=== PATIENT | male | born 1980 | race Caucasian/White ===

== ENCOUNTER 2023-04-22 13:12 | Emergency (ER) | payer OTHER, SELFPAY ==
[2023-04-22] VITALS (11 sets, daily range): BP systolic 121–137; BP diastolic 67–82; PULSE 73–89; RESP 18–20; TEMP 36.6; O2SAT 90–95; BMI 37.3
--- NOTE | 2023-04-22 13:34 | ECG_ITS ---
APPROVED REPORT Exam: Resting ECG HR:81 bpm ECG Measurements Heart Rate 81 AXES MN 165 P 44 QRSd 97 QRS 46 QT 365 T 30 QTc 402 Conclusion SINUS RHYTHM BORDERLINE ECG Electronically signed by : CHARLETTE ALEX, 04/22/2023 16:26:37
--- NOTE | 2023-04-22 14:05 | XR_ITS ---
FINAL REPORT CLINICAL HISTORY: Shortness of breath COMPARISON: 04/22/2023 FINDINGS: Two views of the chest were obtained. The heart size and pulmonary vascularity are within normal limits. The mediastinum is normal. No acute pulmonary abnormality is identified. There is no pneumothorax. The bony thorax is intact. IMPRESSION: No active cardiopulmonary disease. Reviewed, Interpreted and Dictated by Henry Solorzano III, MD Transcribed by Hailey Paul Authenticated and . [facility]
[2023-04-22 14:12] LABS: Basophils % 0.8 % (0.1-2.0); Eosinophils # 0.1 K/mm3 (0.0-0.4); Eosinophils % 2.4 % (0.1-12.0); Hematocrit 45.3 % (42.0-52.0); Hemoglobin 14.9 g/dL (14.1-18.0); Lymphocytes # 1.2 K/mm3 (0.7-4.5); Lymphocytes % 20.2 % (10-50); Mean Corpuscular HGB Conc 32.8 g/dL (31.8-35.4); Mean Corpuscular Volume 85.2 fl (80-94); Mean Platelet Volume 7.9 fl (7.4-10.4); Monocytes # 0.4 K/mm3 (0.1-1.0); Monocytes % 6.4 % (1.7-9.3); Neutrophils # 4.1 K/mm3 (1.8-7.8); Neutrophils % 70.2 % (37.0-80.0); Platelet Count 107 K/mm3 (142-424); Red Blood Count 5.32 M/mm3 (4.60-6.20); Red Cell Distribution Width 16.4 % (11.5-17.5); White Blood Count 5.8 K/mm3 (4.8-10.8)
--- NOTE | 2023-04-22 14:12 | CT_ITS ---
PROCEDURE INFORMATION: Exam: CTA Chest With Contrast Exam date and time: 04/22/2023 1:46 PM Age: 42 years old Clinical indication: Pain; Dyspnea; Chest pressure; Additional info: Fever dyspnea chest pain TECHNIQUE: Imaging protocol: Computed tomographic angiography of the chest with contrast. Exam focused on the arteries. 3D rendering (Not supervised by radiologist): MIP and/or 3D reconstructed images were created by the technologist. Radiation optimization: All CT scans at this facility use at least one of these dose optimization techniques: automated exposure control; mA and/or kV adjustment per patient size (includes targeted exams where dose is matched to clinical indication); or iterative reconstruction. Contrast material: ISOVUE 370; Contrast volume: 70 ml; Contrast route: INTRAVENOUS (IV); COMPARISON: CR CXR CHEST(2 VIEWS-NOT PORTABLE) 09/07/2016 2:39 PM FINDINGS: Pulmonary arteries: No evidence of pulmonary embolism. Aorta: No aortic aneurysm. Lungs: No evidence of acute airspace infiltrate. No pulmonary edema. Few calcified pulmonary granulomata in the right middle lobe consistent with chronic sequelae of prior granulomatous disease. Noncalcified subpleural 5 mm pulmonary nodule in the right middle lobe (series 7, image 60). Pleural spaces: No pneumothorax. No pleural effusion. Heart: Mild global cardiomegaly. Lymph nodes: Calcified mediastinal lymph nodes consistent with chronic sequelae of prior granulomatous disease. Intraperitoneal space: No emergent findings or suspicious mass lesions in the partially visualized upper abdomen. Bones/joints: No acute osseous abnormality. Soft tissues: Gynecomastia. IMPRESSION: 1. No evidence of pulmonary embolism or other acute process in the chest. 2. Noncalcified subpleural 5 mm pulmonary nodule in the right middle lobe. Please see comments below for current guidelines. 3. Mild global cardiomegaly. 4. Gynecomastia. COMMENTS: guidelines recommend for patients at low risk (minimal or absent history of smoking and of other known risk factors), no routine follow-up is indicated. For patients at high risk (history of smoking or of other known risk factors), consider optional CT Chest at 12 months. (Reference: Savage) REFERENCES: Savage Chong et al. Guidelines for Management of Incidental Pulmonary Nodules Detected on CT Images: From the Fleischner Society 2017. Radiology. 2017;284(1):228-243.
--- NOTE | 2023-04-22 14:12 | ED_ITS ---
<Statement entered by Sami Aquino MD - 04/22/23 22:53> I was consulted by the GRIFFIN, and we discussed the complexity of the problems being addressed. I approved the treatment and management plan for this patient's care in the emergency department, thus performing a substantive portion of the medical decision making. Sami Aquino MD, MAICO, FACEP Discharge Plan Disposition Patient Disposition: Home, Self-Care Condition: Good Chief Complaint: Shortness of Breath/Dyspnea Referrals Follow up/Referrals: Rosa Maria Anthony [Primary Care Provider] - See instructions Activity Restrictions/Add. Instructions Additional Instructions/Restrictions: Call make a follow-up with your examiner rating clerk worsening tomorrow. Return to PCP or ER for worsening signs symptoms or condition as needed. Clinical Impressions Clinical Impression: Hepatopulmonary syndrome Discharge ED Provider: Sami Aquino HPI <JAMES Schultz - Last Filed: 04/22/23 16:23> General Chief Complaint: Shortness of Breath/Dyspnea Stated Complaint: SOA, fever, cough, congestion Time Seen by Provider: 04/22/23 14:02 Mode of Arrival: Ambulatory Source of Information: Patient Limitations: No Limitations Description of Symptoms (Recalled from ER Triage Doc. by RN): pt c/o a cough, fever, SOA, and chest pain with deep breathing. Pt states over the past month he has been treated on two different occasions with antibiotics for PNA. pt was first given cefdinir and then levoquin. pt has completed both antibiotics. pts main concern today was the increasing SOA. pt has hepatopulmonary disease, he was dx about a year ago. pt is on the liver transplant list at with Dr. Gray. pt is baseline on 3LNC. pts baseline saturation on 3LNC is in the high 80's. History of Present Illness HPI narrative: Patient has presented to the emergency department for a 4-week history of pneumonia . Patient was originally diagnosed with pneumonia by his PCP and prescribed a course of Omnicef. Patient did not improve through the course of Omnicef and was started on a second antibiotic although the patient does not know the name. Patient finished the antibiotic last week reports that he felt some better over the weekend but has had return of congestion and cough and fever of 101 last 92 today. 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 Patient reports that his oxygen requirement has not gone up. He is on the transplant list at the [facility]. Patient reports that his chest hurts especially with deep breath or cough but denies cardiac chest pain chills hemoptysis hematochezia melena nausea vomiting diarrhea. Related Data Allergies Allergy/AdvReac Type Severity Reaction Status Date / Time Penicillins [PENICILLINS] Allergy Unknown Verified 04/22/23 14:10 [facility] <JAMES Schultz - Last Filed: 04/22/23 16:23> [facility] Disclaimer: The information contained in this section may have been updated after the patient was seen, as this information can be updated by other users. Social History Smoking Status: Never smoker alcohol intake: former current occupational status: disabled Travel in the last 8 weeks: None <JAMES Schultz - Last Filed: 04/22/23 16:23> ROS Obtained: Yes Systems reviewed as appropriate & no additional complaints except as documented Physical Exam <JAMES Schultz - Last Filed: 04/22/23 16:23> General General appearance: alert and in no apparent distress Head Head exam: atraumatic and normal inspection Eye Eye exam: Present normal appearance, PERRL and EOMI; Absent scleral icterus or jaundice ENT ENT exam: Present normal exam, normal oropharynx and mucous membranes moist Neck Neck exam: Present normal inspection, full ROM and trachea midline; Absent lymphadenopathy Chest Chest inspection: Present normal inspection and symmetric chest wall rise; Absent tenderness Respiratory Respiratory exam: Present normal lung sounds bilaterally; Absent respiratory distress, wheezes or accessory muscle use Cardiovascular Cardiovascular exam: Present regular rate, normal rhythm, normal heart sounds, +S1 and +S2 Abdominal Exam Abdominal exam: Present soft (Distended but soft and nontender to palpation) and normal bowel sounds Extremities Exam Extremities exam: Present normal inspection and full ROM Back Exam Back exam: Present normal inspection and full ROM Neurological Exam Neurological exam: Present alert and oriented X3 Psychiatric Psychiatric exam: Present normal affect and normal mood Skin Skin exam: Present warm, dry and normal color HEART Score <JAMES Schultz Last Filed: 04/22/23 16:23> HEART Score HEART Score assessment performed?: Yes History (anamnesis): Slightly suspicious ECG: Normal Age: <45 years Risk factors: 3 or more risk factors Troponin: </= normal limit HEART Score: 2 Critical Care <JAMES Schultz - Last Filed: 04/22/23 16:23> Critical Care Time Critical Care Time: No Medical Decision Making <JAMES Schultz - Last Filed: 04/22/23 16:23> Medical Records Medical records reviewed: Yes I reviewed the patient's medical records. Jomar Inquiry Pt receiving controlled substance: No Vital Signs Vital Signs: 04/22/23 13:30 04/22/23 13:53 04/22/23 13:54 Temperature 98 F Temperature Source Oral Pulse Rate 83 81 Pulse Rate [Left] 84 Respiratory Rate 20 Blood Pressure 137/82 125/67 Blood Pressure [Right Arm] 137/82 Blood Pressure Mean 97 86 Blood Pressure Mean [Right Arm] 100 Blood Pressure Source [Right Arm] Automatic Cuff Blood Pressure Position [Right Arm] Sitting 02 Sat by Pulse Oximetry 90 L 90 L 91 L Oxygen Delivery Method Nasal Cannula Oxygen Flow Rate (LPM) 3 04/22/23 14:00 04/22/23 14:30 04/22/23 14:45 Temperature Temperature Source Pulse Rate 85 80 87 Pulse Rate [Left] Respiratory Rate Blood Pressure 121/72 131/77 137/78 Blood Pressure [Right Arm] Blood Pressure Mean 84 Blood Pressure Mean [Right Arm] Blood Pressure Source [Right Arm] Blood Pressure Position [Right Arm] 02 Sat by Pulse Oximetry 90 L 91 L 92 L Oxygen Delivery Method Nasal Cannula Nasal Cannula Oxygen Flow Rate (LPM) 04/22/23 15:00 04/22/23 15:30 04/22/23 15:45 Temperature Temperature Source Pulse Rate 81 77 88 Pulse Rate [Left] Respiratory Rate Blood Pressure 130/75 126/72 122/72 Blood Pressure [Right Arm] Blood Pressure Mean Blood Pressure Mean [Right Arm] Blood Pressure Source [Right Arm] Blood Pressure Position [Right Arm] 02 Sat by Pulse Oximetry 93 L 95 95 Oxygen Delivery Method Nasal Cannula Room Air Room Air Oxygen Flow Rate (LPM) Lab Data Lab results reviewed: Yes I reviewed the patient's lab results. Labs: Lab Results 04/22/23 13:50: WBC 5.8, RBC 5.32, Hgb 14.9, Hct 45.3, MCV 85.2, MCH 28.0, MCHC 32.8, RDW 16.4, Plt Count 107 L, MPV 7.9, Neut % (Auto) 70.2, Lymph % (Auto) 20.2, Payne % (Auto) 6.4, Eos % (Auto) 2.4, Baso % (Auto) 0.8, Neut # (Auto) 4.1, Lymph # (Auto) 1.2, Payne # (Auto) 0.4, Eos # (Auto) 0.1, Baso # (Auto) 0.0, PT 12.7 H, INR 1.19 H, Sodium 135 L, Potassium 4.0, Chloride 106, Carbon Dioxide 25, Anion Gap 8.0, BUN 13, Creatinine 0.80, Estimated Creat Clear 217, Estimated GFR 107, Est GFR ( Amer) 130, Glucose 100, Calcium 9.2, Total Bilirubin 1.8 H, AST 40, ALT 19, Alkaline Phosphatase 112, Troponin I < 0.01, Total Protein 7.4, Albumin 4.0, Globulin 3.4 H, Albumin/Globulin Ratio 1.2 04/22/23 14:08: SARS-CoV-2 (PCR) Not detected, Influenza A Untype (PCR) Not detected, Influenza Type B (PCR) Not detected 04/22/23 14:15: D-Dimer < 0.25, Lactate 0.8, NT-Pro-B Natriuret Pep < 20.0, Procalcitonin 0.061 04/22/23 13:50 04/22/23 13:50 Response Orders (Tests/Meds): ED MEDICATIONS Generic Name Dose Route Start Last Admin Trade Name Freq PRN Reason Stop Dose Admin Sodium Chloride 10 ml 04/22/23 14:49 Sodium Chloride 0.9% 10ml Syr (Rad Only) IV 05/22/23 14:48 NEEDED PRN Maintain IV Site Discontinued Medications Generic Name Dose Route Start Last Admin Trade Name Freq PRN Reason Stop Dose Admin Acetaminophen 1,000 mg 04/22/23 15:44 04/22/23 16:04 Acetaminophen 500mg Tab PO 04/22/23 15:45 1,000 mg ONCE ONE Administration Albuterol/Ipratropium 3 ml 04/22/23 15:43 04/22/23 16:04 Ipratropium/Albuterol 3 Ml [facility] 04/22/23 15:44 3 ml ONCE ONE Administration Dexamethasone Sodium Phosphate 10 mg 04/22/23 15:43 04/22/23 16:03 Dexamethasone 4mg/Ml 5ml Mdv IV 04/22/23 15:44 10 mg ONCE ONE Administration Iopamidol 70 ml 04/22/23 14:49 04/22/23 14:51 Iopamidol-370 (76%);100ml Bottle IV 04/22/23 14:50 70 ml ONCE ONE Administration Ketorolac Tromethamine 15 mg 04/22/23 15:44 04/22/23 16:04 Ketorolac 30mg/Ml Vial IV 04/22/23 15:45 15 mg ONCE ONE Administration Sodium Chloride 50 ml 04/22/23 14:49 04/22/23 14:50 0.9 % Sodium Chloride 50 Ml Vial IV 04/22/23 14:50 50 ml ONCE ONE Administration ORDERS Category Date Time Status CTA Chest [CT angio chest PE protocol] Stat Cat Scan 04/22/23 14:12 Completed Chest XR 2 view (NOT portable) [XR chest 2V] Stat Exams 04/22/23 14:05 Completed Brain Natriuretic Peptide Stat Lab 04/22/23 14:15 Completed Complete Blood Count Auto Diff Stat Lab 04/22/23 13:50 Completed Comprehensive Metabolic Panel Stat Lab 04/22/23 13:50 Completed D-Dimer Stat Lab 04/22/23 14:15 Completed INR [Prothrombin Time INR] Stat Lab 04/22/23 13:50 Completed Lactic Acid Stat Lab 04/22/23 14:15 Completed Procalcitonin Stat Lab 04/22/23 14:15 Completed Rapid PCR Covid and Flu A/B Stat Lab 04/22/23 14:08 Completed Troponin I Q3H Lab 04/22/23 17:15 Ordered Troponin I Q3H Lab 04/22/23 20:15 Ordered Troponin I Stat Lab 04/22/23 13:50 Completed MDM Narrative Medical Decision Narrative: In summary patient is a 42-year-old male who presents to the emergency department for evaluation of 4-week history of nonproductive cough, congestion, malaise and now 24 hours of subjective fever. Patient has a history of stage liver disease due to cirrhosis from alcohol abuse currently on the transplant list at and a known diagnosis of hepatopulmonary syndrome on chronic 3 L by nasal cannula. Patient is hemodynamically stable satting at 90% on his normal chronic 3 L by nasal cannula upon arrival, and afebrile. Physical exam is unremarkable and nonfocal including normal breath sounds normal heart sounds distended but soft abdomen with normal bowel sounds and no tenderness. There is no tenderness to palpation along the chest wall. Differential diagnosis includes, hepatic hydrothorax, worsening hepatopulmonary syndrome, pneumonia, PE, pleural effusion, bacterial or viral infection, ACS etc. Initial workup will be conducted with hematologic labs respiratory swab plain film chest x-ray, CTA of the chest PE protocol. Initial interventions include Tylenol Toradol DuoNeb and breathing treatment. Initial workup reviewed by me shows that his hematologic labs are nonactionable including a normal white count with no shift, CMP which shows normal transaminases and mildly elevated bilirubin, INR was slightly elevated. Upon repeat evaluation actual improvement in his oxygenation from 90 to 94% at the time of my exam.. Given this patient is appropriate for discharge home with instructions to call his examiner rating clerk in the morning and make an appointment for reevaluation/follow-up. Patient verbalized understanding and agreement. <Xavier Lin MD - Last Filed: 04/22/23 15:30> Vital Signs Vital Signs: 04/22/23 13:30 04/22/23 13:53 04/22/23 13:54 Temperature 98 F Temperature Source Oral Pulse Rate 83 81 Pulse Rate [Left] 84 Respiratory Rate 20 Blood Pressure 137/82 125/67 Blood Pressure [Right Arm] 137/82 Blood Pressure Mean 97 86 Blood Pressure Mean [Right Arm] 100 Blood Pressure Source [Right Arm] Automatic Cuff Blood Pressure Position [Right Arm] Sitting 02 Sat by Pulse Oximetry 90 L 90 L 91 L Oxygen Delivery Method Nasal Cannula Oxygen Flow Rate (LPM) 3 04/22/23 14:00 04/22/23 14:30 04/22/23 14:45 Temperature Temperature Source Pulse Rate 85 80 87 Pulse Rate [Left] Respiratory Rate Blood Pressure 121/72 131/77 137/78 Blood Pressure [Right Arm] Blood Pressure Mean 84 Blood Pressure Mean [Right Arm] Blood Pressure Source [Right Arm] Blood Pressure Position [Right Arm] 02 Sat by Pulse Oximetry 90 L 91 L 92 L Oxygen Delivery Method Nasal Cannula Nasal Cannula Oxygen Flow Rate (LPM) 04/22/23 15:00 04/22/23 15:30 04/22/23 15:45 Temperature Temperature Source Pulse Rate 81 77 88 Pulse Rate [Left] Respiratory Rate Blood Pressure 130/75 126/72 122/72 Blood Pressure [Right Arm] Blood Pressure Mean Blood Pressure Mean [Right Arm] Blood Pressure Source [Right Arm] Blood Pressure Position [Right Arm] 02 Sat by Pulse Oximetry 93 L 95 95 Oxygen Delivery Method Nasal Cannula Room Air Room Air Oxygen Flow Rate (LPM) Lab Data Labs: Lab Results 04/22/23 13:50: WBC 5.8, RBC 5.32, Hgb 14.9, Hct 45.3, MCV 85.2, MCH 28.0, MCHC 32.8, RDW 16.4, Plt Count 107 L, MPV 7.9, Neut % (Auto) 70.2, Lymph % (Auto) 20.2, Payne % (Auto) 6.4, Eos % (Auto) 2.4, Baso % (Auto) 0.8, Neut # (Auto) 4.1, Lymph # (Auto) 1.2, Payne # (Auto) 0.4, Eos # (Auto) 0.1, Baso # (Auto) 0.0, PT 12.7 H, INR 1.19 H, Sodium 135 L, Potassium 4.0, Chloride 106, Carbon Dioxide 25, Anion Gap 8.0, BUN 13, Creatinine 0.80, Estimated Creat Clear 217, Estimated GFR 107, Est GFR ( Amer) 130, Glucose 100, Calcium 9.2, Total Bilirubin 1.8 H, AST 40, ALT 19, Alkaline Phosphatase 112, Troponin I < 0.01, Total Protein 7.4, Albumin 4.0, Globulin 3.4 H, Albumin/Globulin Ratio 1.2 04/22/23 14:08: SARS-CoV-2 (PCR) Not detected, Influenza A Untype (PCR) Not detected, Influenza Type B (PCR) Not detected 04/22/23 14:15: D-Dimer < 0.25, Lactate 0.8, NT-Pro-B Natriuret Pep < 20.0, Procalcitonin 0.061 Response Orders (Tests/Meds): ED MEDICATIONS Generic Name Dose Route Start Last Admin Trade Name Freq PRN Reason Stop Dose Admin Sodium Chloride 10 ml 04/22/23 14:49 Sodium Chloride 0.9% 10ml Syr (Rad Only) IV 05/22/23 14:48 NEEDED PRN Maintain IV Site Discontinued Medications Generic Name Dose Route Start Last Admin Trade Name Torreyq PRN Reason Stop Dose Admin Acetaminophen 1,000 mg 04/22/23 15:44 04/22/23 16:04 Acetaminophen 500mg Tab PO 04/22/23 15:45 1,000 mg ONCE ONE Administration Albuterol/Ipratropium 3 ml 04/22/23 15:43 04/22/23 16:04 Ipratropium/Albuterol 3 Ml Neb IH 04/22/23 15:44 3 ml ONCE ONE Administration Dexamethasone Sodium Phosphate 10 mg 04/22/23 15:43 04/22/23 16:03 Dexamethasone 4mg/Ml 5ml Mdv IV 04/22/23 15:44 10 mg ONCE ONE Administration Iopamidol 70 ml 04/22/23 14:49 04/22/23 14:51 Iopamidol-370 (76%);100ml Bottle IV 04/22/23 14:50 70 ml ONCE ONE Administration Ketorolac Tromethamine 15 mg 04/22/23 15:44 04/22/23 16:04 Ketorolac 30mg/Ml Vial IV 04/22/23 15:45 15 mg ONCE ONE Administration Sodium Chloride 50 ml 04/22/23 14:49 04/22/23 14:50 0.9 % Sodium Chloride 50 Ml Vial IV 04/22/23 14:50 50 ml ONCE ONE Administration ORDERS Category Date Time Status CTA Chest [CT angio chest PE protocol] Stat Cat Scan 04/22/23 14:12 Completed Chest XR 2 view (NOT portable) [XR chest 2V] Stat Exams 04/22/23 14:05 Completed Brain Natriuretic Peptide Stat Lab 04/22/23 14:15 Completed Complete Blood Count Auto Diff Stat Lab 04/22/23 13:50 Completed Comprehensive Metabolic Panel Stat Lab 04/22/23 13:50 Completed D-Dimer Stat Lab 04/22/23 14:15 Completed INR [Prothrombin Time INR] Stat Lab 04/22/23 13:50 Completed Lactic Acid Stat Lab 04/22/23 14:15 Completed Procalcitonin Stat Lab 04/22/23 14:15 Completed Rapid PCR Covid and Flu A/B Stat Lab 04/22/23 14:08 Completed Troponin I Q3H Lab 04/22/23 17:15 Ordered Troponin I Q3H Lab 04/22/23 20:15 Ordered Troponin I Stat Lab 04/22/23 13:50 Completed ECG Data Tracing #1: ECG Narrative: Independently interpreted by Xavier Lin, rate is 81, rhythm is regular, axis is normal, no ST elevation in anatomical contiguous leads, QTc 402. EKG interpreted by Xavier Lin, rest of care per Dr. Laguna and Willie Aquino.
[2023-04-22 14:14] LABS: Chloride 106 mmol/L (98-107); Sodium 135 mmol/L (136-145)
[2023-04-22 14:16] LABS: Blood Urea Nitrogen 13 mg/dl (9-20); Creatinine Clearance Estimated 217 mL/min (50-200); Estimated Glomerular Filt Rate 107 ml/min (>60); GFR (African American) 130 ML/MIN (>60)
--- NOTE | 2023-04-22 14:16 | PC.NURSE ---
pt going to xray
[2023-04-22 14:17] LABS: Alanine Aminotransferase 19 U/L (12-78); Albumin/Globulin Ratio 1.2 (1.1-1.8); Alkaline Phosphatase 112 U/L (38-126); Aspartate Amino Transferase 40 U/L (17-59); Bilirubin,Total 1.8 mg/dl (0.2-1.3); Calcium 9.2 mg/dl (8.4-10.2); Carbon Dioxide 25 mmol/L (22.0-30.0); Globulin 3.4 g/dL (1.3-3.2); Glucose 100 mg/dl (74-100); Total Protein,Serum 7.4 g/dl (6.3-8.2)
[2023-04-22 14:19] LABS: Coronavirus 19, PCR Not Detected (NotDetected); Influenza A, PCR Not Detected (NotDetected); Influenza B, PCR Not Detected (NotDetected)
[2023-04-22 14:32] LABS: Troponin I < 0.01 ng/ml (0.00-0.034)
--- NOTE | 2023-04-22 14:46 | PC.NURSE ---
Pt going to CT via wheelchair
[2023-04-22 14:49] LABS: Lactic Acid 0.8 mmol/L (0.7-2.1)
[2023-04-22] MEDS: 0.9 % SODIUM CHLORIDE 50 ML VIAL IV (14:50)
[2023-04-22] MEDS: IOPAMIDOL-370 (76%);100ML BOTTLE 70 ML IV (14:51)
[2023-04-22 14:53] LABS: INR 1.19 (0.9-1.1); Prothrombin Time 12.7 seconds (10.1-12.5)
--- NOTE | 2023-04-22 14:55 | PC.NURSE ---
Pt returned from CT
[2023-04-22 14:58] LABS: NT Pro Brain Natriuretic Pep. < 20.0 pg/mL (0-125)
[2023-04-22 15:06] LABS: Procalcitonin 0.061 ng/mL (0.0-2.0)
[2023-04-22 15:11] LABS: D-Dimer < 0.25 ug/mL (0.0-0.5)
--- NOTE | 2023-04-22 15:56 | PC.NURSE ---
radiology states that reports are being read at this time
[2023-04-22] MEDS: DEXAMETHASONE 4MG/ML 5ML MDV 10 MG IV (16:03)
[2023-04-22] MEDS: ACETAMINOPHEN 500MG TAB 1000 MG PO (16:04)
[2023-04-22] MEDS: IPRATROPIUM/ALBUTEROL 3 ML NEB IH (16:04)
[2023-04-22] MEDS: KETOROLAC 30MG/ML VIAL 15 MG IV (16:04)
== END 2023-04-22 16:29 | disposition home or self-care (01) ==
PROVIDERS: Emergency Medicine; Physician Assistant; Emergency Provider Student in an Organized Health Care Education/Training Program; PCP Nurse Practitioner Family
DX: K76.81 Hepatopulmonary syndrome (principal); R07.1 Chest pain on breathing; R06.02 Shortness of breath; R50.9 Fever, unspecified; R05.9 Cough, unspecified; K74.60 Unspecified cirrhosis of liver; F10.11 Alcohol abuse, in remission
CPT/HCPCS: 71046; 71275; 80053; 83605; 83880; 84145; 84484; 85025; 85378; 85610; 87636; 93005; 96374; 96375; 99285; Q9967

== ENCOUNTER 2023-10-21 19:32 | Emergency (ER) | payer OTHER, SELFPAY ==
[2023-10-21 19:33] VITALS: BP 157/76; PULSE 87; RESP 18; TEMP 36.6; O2SAT 90; BMI 39.3
--- NOTE | 2023-10-21 19:42 | ED_ITS ---
<Statement entered by Xavier Lin MD - 10/21/23 22:50> I was consulted by the GRIFFIN, and we discussed the complexity of the problems being addressed. I approved the treatment and management plan for this patient's care in the emergency department, thus performing a substantive portion of the medical decision making. Xavier Lin MD Discharge Plan Disposition Patient Disposition: Home, Self-Care Condition: Good Referrals Follow up/Referrals: Rosa Maria Anthony [Primary Care Provider] - See instructions Activity Restrictions/Add. Instructions Additional Instructions/Restrictions: As we discussed please call the transplant clinic in the morning to get directions for follow-up. As discussed please start taking a stool softener and avoid prolonged sitting. Return to the ER for any worsening signs or symptoms as needed Clinical Impressions Clinical Impression: Bleeding external hemorrhoids Cirrhosis Qualifiers: Hepatic cirrhosis type: alcoholic cirrhosis Ascites presence: without ascites Q ualified Code(s): K70.30 - Alcoholic cirrhosis of liver without ascites Instructions Patient Instructions: DI for Hemorrhoids Print Language Print Language: Faroese Discharge ED Provider: Xavier Lin General Adult HPI General Chief complaint: GI Bleed Stated complaint: Bloody stool, Time Seen by Provider: 10/21/23 19:41 History of Present Illness HPI narrative: Patient presents for evaluation of bright red blood per rectum. Patient has a known history of end-stage liver disease with cirrhosis, varices and is on the transplant list as well as followed by the transplant service at [facility]. Patient noted today that he had a bowel movement and had bright red blood in the toilet. He contacted his alumni coordinator who told him that if he had any more of that he needed to come to the ER for evaluation. Patient again felt like he had a bowel movement and did not pass any stool but he noticed a dripping sound in the toilet and saw bright red blood and hence he presented to the emerged part for evaluation. Related Data Allergies Allergy/AdvReac Type Severity Reaction Status Date / Time Penicillins [PENICILLINS] Allergy Unknown Verified 04/22/23 14:10 [facility] Disclaimer: The information contained in this section may have been updated after the patient was seen, as this information can be updated by other users. Social History (Updated 04/22/23 @ 16:23 by JAMES Schultz) Smoking Status: Never smoker alcohol intake: former current occupational status: disabled Travel in the last 8 weeks: None ROS Obtained: Yes Systems reviewed as appropriate & no additional complaints except as documented Physical Exam General General appearance: alert and in no apparent distress Respiratory Respiratory exam: Present normal lung sounds bilaterally Cardiovascular Cardiovascular exam: Present regular rate Neurological Exam Neurological exam: Present alert and oriented X3 Medical Decision Making Medical Records Medical records reviewed: Yes I reviewed the patient's medical records. Jomar Inquiry Pt receiving controlled substance: No Vital Signs: 10/21/23 19:33 10/21/23 20:01 10/21/23 20:31 Temperature 97.8 F Temperature Source Oral Pulse Rate 81 97 H Pulse Rate [Right Brachial] 87 Respiratory Rate 18 Blood Pressure 166/82 H 151/69 H Blood Pressure [Right Arm] 157/76 H Blood Pressure Mean [Right Arm] 103 Blood Pressure Source [Right Arm] Automatic Cuff Blood Pressure Position [Right Arm] Supine 02 Sat by Pulse Oximetry 90 L 90 L 92 L Oxygen Delivery Method Nasal Cannula Oxygen Flow Rate (LPM) 3 Lab Data Lab results reviewed: Yes I reviewed the patient's lab results. Lab Results 10/21/23 20:56: WBC 5.5, RBC 5.13, Hgb 14.4, Hct 44.9, MCV 87.6, MCH 28.0, MCHC 32.0, RDW 16.5, Plt Count 119 L, MPV 7.5, Neut % (Auto) 75.2, Lymph % (Auto) 16.6, Burnet % (Auto) 5.2, Eos % (Auto) 2.2, Baso % (Auto) 0.8, Neut # (Auto) 4.1, Lymph # (Auto) 0.9, Burnet # (Auto) 0.3, Eos # (Auto) 0.1, Baso # (Auto) 0.0, PT 12.8 H, INR 1.16 H, Sodium 138, Potassium 3.8, Chloride 109 H, Carbon Dioxide 23, Anion Gap 9.8, BUN 13, Creatinine 0.70, Estimated Creat Clear 258, Estimated GFR 124, Est GFR ( Amer) 150, Glucose 99, Calcium 9.0, Magnesium 1.7, T otal Bilirubin 1.6 H, AST 31, ALT 22, Alkaline Phosphatase 98, Total Protein 7.2, Albumin 3.9, Globulin 3.3 H, Albumin/Globulin Ratio 1.2 10/21/23 20:56 10/21/23 20:56 Orders (Tests/Meds): ED MEDICATIONS Discontinued Medications Generic Name Dose Route Start Last Admin Trade Name Nadeem PRN Reason Stop Dose Admin Lactated Ringer's 1,000 mls @ 999 mls/hr 10/21/23 20:12 10/21/23 20:48 Lactated Ringer's 1000 Ml Bag IV 10/21/23 21:12 999 mls/hr .Q1H1M ONE Administration ORDERS Category Date Time Status CBC w/Auto Diff [Complete Blood Count Auto Diff] Stat Lab 10/21/23 20:56 Completed CMP [Comprehensive Metabolic Panel] Stat Lab 10/21/23 20:56 Completed INR [Prothrombin Time INR] Stat Lab 10/21/23 20:56 Completed Magnesium Stat Lab 10/21/23 20:56 Completed Medical Decision Narrative: In summary patient is a 43-year-old male who presents to the emergency department for evaluation of blood per rectum. Patient is hemodynamically stable upon arrival, afebrile. On physical exam I did a digital rectal exam and noticed that the patient does have nonthrombosed bleeding hemorrhoids on the right side posteriorly. It is bleeding only when stretched through a small punctate hole. It is not tender to palpation.. Differential diagnosis includes simple bleeding hemorrhoid versus hypocoagulable state due to his liver disease. Initial workup will be conducted with hematologic labs. Initial interventions include Surgicel. Initial workup reviewed by me and actually his hematologic labs are reassuring as his INR is 1.1 today and in his MyChart last INR was 1.3 with the remainder of his hematologic labs to be nonactionable. Upon repeat evaluation we were able to achieve hemostasis with Surgicel. Given this I had interact discussion with [facility] regarding patient's bleeding hemorrhoid to ensure that the transplant service knew about him only. They advised to have the patient call the transplant clinic in the morning obviously with concerns and strict return precautions. Patient verbalized agreement and understanding. Critical Care Critical Care Time Critical Care Time: No
[2023-10-21 20:01] VITALS: BP 166/82; PULSE 81; O2SAT 90
[2023-10-21 20:31] VITALS: BP 151/69; PULSE 97; O2SAT 92
[2023-10-21] MEDS: LACTATED RINGERS 1000ML 1,000 ML 999 ML IV (20:48)
[2023-10-21 21:11] LABS: Basophils % 0.8 % (0.1-2.0); Eosinophils # 0.1 K/mm3 (0.0-0.4); Eosinophils % 2.2 % (0.1-12.0); Hematocrit 44.9 % (42.0-52.0); Hemoglobin 14.4 g/dL (14.1-18.0); Lymphocytes # 0.9 K/mm3 (0.7-4.5); Lymphocytes % 16.6 % (10-50); Mean Corpuscular Volume 87.6 fl (80-94); Mean Platelet Volume 7.5 fl (7.4-10.4); Monocytes # 0.3 K/mm3 (0.1-1.0); Monocytes % 5.2 % (1.7-9.3); Neutrophils # 4.1 K/mm3 (1.8-7.8); Neutrophils % 75.2 % (37.0-80.0); Platelet Count 119 K/mm3 (142-424); Red Blood Count 5.13 M/mm3 (4.60-6.20); Red Cell Distribution Width 16.5 % (11.5-17.5); White Blood Count 5.5 K/mm3 (4.8-10.8)
[2023-10-21 21:14] LABS: Albumin Level 3.9 g/dl (3.5-5.0); Chloride 109 mmol/L (98-107); Potassium 3.8 mmoL/L (3.5-5.1); Sodium 138 mmol/L (136-145)
[2023-10-21 21:16] LABS: INR 1.16 (0.9-1.1); Prothrombin Time 12.8 seconds (10.1-12.5)
[2023-10-21 21:17] LABS: Alanine Aminotransferase 22 U/L (12-78); Albumin/Globulin Ratio 1.2 (1.1-1.8); Alkaline Phosphatase 98 U/L (38-126); Anion Gap 9.8 mEq/L (5-15); Aspartate Amino Transferase 31 U/L (17-59); Bilirubin,Total 1.6 mg/dl (0.2-1.3); Blood Urea Nitrogen 13 mg/dl (9-20); Carbon Dioxide 23 mmol/L (22.0-30.0); Creatinine Clearance Estimated 258 mL/min (50-200); Estimated Glomerular Filt Rate 124 ml/min (>60); GFR (African American) 150 ML/MIN (>60); Globulin 3.3 g/dL (1.3-3.2); Glucose 99 mg/dl (74-100); Magnesium 1.7 mg/dl (1.6-2.3); Total Protein,Serum 7.2 g/dl (6.3-8.2)
--- NOTE | 2023-10-21 21:32 | PC.NURSE ---
pc placed to [facility] MD's re consult with liver transport team, awaiting return call
--- NOTE | 2023-10-21 21:50 | PC.NURSE ---
pa speaking with dr moore from at this time.
--- NOTE | 2023-10-21 21:50 | PC.NURSE ---
JAMES Estes on phone with at this time.
[2023-10-21 22:23] VITALS: BP 158/78; PULSE 88; RESP 20; TEMP 36.5; O2SAT 92
== END 2023-10-21 22:24 | disposition home or self-care (01) ==
PROVIDERS: Physician Assistant; Emergency Provider Emergency Medicine; PCP Nurse Practitioner Family
DX: K64.8 Other hemorrhoids (principal); K72.10 Chronic hepatic failure without coma; K74.69 Other cirrhosis of liver
CPT/HCPCS: 80053; 83735; 85025; 85610; 96360; 99284; J7120

== ENCOUNTER 2024-05-22 14:08 | Outpatient (CLI) | payer OTHER, SELFPAY ==
--- NOTE | 2024-05-22 | CA_ITS ---
APPROVED REPORT EXAM: Comprehensive 2D, Doppler, and color-flow Echocardiogram Calibration Checker: FABRICE Aguilar, RVS Ht: 6 ft 0 in Wt: 300lbs BSA: 2.53 BP: 120/80 mmHg Indications: S/p Liver transplant 12/27/2024 hepatofugal flow, O2 dependent with pulse ox=88% on 5 liters of oxygen, SOA Echo Enhancing Agent Indication: Rule out Shunt Agent(s) / Amount(s) Used: Agitated Saline 20 cc Comments: Positve for passive right to left shunt. 2D Dimensions Left Atrium 4.30 cm LA Volume 93.60 mL LA Volume Index 36.327006 mL/m2 (M/F) 16-34 M-Mode Dimensions RVDd 3.97 cm (0.9-2.6) LA Diam 3.99 cm (1.9-4.0) LVDd 4.73 cm (3.5-5.7) LVDs 3.35 cm (3.5-5.7) IVSd 1.38 cm (0.6-1.1) PWd 1.12 cm (0.6-1.1) EF (Teich) 55.90% EPSs 0.54 cm FS 29.20% EDV (Teich) 103.90 mL TAPSE 2.61 (<1.7) ESV (Teich) 45.80 mL LV Diastology E Decel Time 157 (160-240 msec) E/A Ratio 0.89 MED A' 12.10 cm/s LAT A' 8.60 cm/s Aortic Valve MARYLIN Index 1.07 cm2/m2 AoV Peak Chano. 144.0 (50-130 cm/s) AO Peak GR. 8.30 mmHg AO Mean GR. 4.10 (<5 mmHg) AO VTI 25.9 (18-25 cm) MARYLIN (VTI) 2.78 (2.5-4.5 cm2) Mitral Valve MV A Velocity 83.0 (40-130 cm/s) E/A Ratio 0.89 Left Ventricle The left ventricle is normal size. The left ventricular systolic function is normal. The left ventricular ejection fraction is within the normal range. There is increased LV wall thickness. There is normal LV segmental wall motion. Diastolic function is indeterminate. LVEF is 55%. Right Ventricle The right ventricle is normal size. The right ventricular systolic function is normal. Atria Left atrium is mildly dilated. The right atrium size is normal. Agitated saline administration demonstrates presence of interatrial shunt. Aortic Valve The aortic valve is normal in structure. There is no aortic valvular stenosis. Trace aortic regurgitation. Mitral Valve The mitral valve is normal in structure. No evidence of mitral valve stenosis. Trace mitral regurgitation. Tricuspid Valve Tricuspid valve is grossly normal in structure and function. Trace tricuspid regurgitation. There is insufficient TR jet to estimate RVSP. Pulmonic Valve The pulmonary valve is normal in structure. Trace pulmonic regurgitation. Great Vessels The aortic root is normal in size. IVC is normal in size and collapses >50% with inspiration. Pericardium There is no pericardial effusion. Other Information Study Quality: Fair Conclusion Normal biventricular size and systolic function. Mild LA dilation. No significant valvular stenosis or regurgitation. Agitated saline administration demonstrates presence of interatrial shunt. Electronically signed by : Laine Villagran MD 05/23/2024 15:24:41
== END 2024-05-22 23:59 | disposition home or self-care (01) ==
LOC: RT 14:08
PROVIDERS: PCP Nurse Practitioner Family; Visit Provider Student in an Organized Health Care Education/Training Program
DX: I51.7 Cardiomegaly (principal); I99.8 Other disorder of circulatory system; D84.9 Immunodeficiency, unspecified; Z94.4 Liver transplant status; Z98.890 Other specified postprocedural states
CPT/HCPCS: 93306